=== PATIENT | male | born 1930 | race Caucasian/White ===

== ENCOUNTER 2018-06-22 08:46 | Day surgery (SDC) | payer OTHER ==
[2018-06-22 09:30] VITALS: TEMP 97.9; BMI 19.5
[2018-06-22 12:33] VITALS: BP 131/82; PULSE 72
== END 2018-06-22 10:55 | disposition home or self-care (01) ==
LOC: JASU-ENDO 08:46
PROVIDERS: ATTEND Internal Medicine Gastroenterology
PROC: 0DJD8ZZ Inspection of Lower Intestinal Tract, Via Natural or Artificial Opening Endoscopic (ICD-10-PCS; principal; 2018-06-22 10:00)
DX: Z12.11 Encounter for screening for malignant neoplasm of colon (principal)